=== PATIENT | male | born 1950 | race Two or more races ===

== ENCOUNTER 2017-09-22 20:56 | Inpatient (IN) | payer MEDICARE, OTHER ==
[~2017-09-22] VITALS: Ht 175.3 cm; Wt 68.5 kg
[2017-09-22] MEDS ORDERED: OMEP20CA10 PO (21:15)
[2017-09-22] MEDS ORDERED: PAXIL PO (21:15)
[2017-09-22] MEDS ORDERED: ALPR1TAB2 PO (21:15)
--- NOTE | 2017-09-22 21:45 | NUR ---
DR. AMAYA AT BEDSIDE FOR MSE.
[2017-09-22 22:28] LABS: *BILIRUBIN,URIN NEGATIVE (NEGATIVE); *BLOOD, URINE NEGATIVE (NEGATIVE); *CLARITY,URINE SLIGHTLY CLOUDY (CLEAR); *COLOR,URINE YELLOW (YELLOW); *KETONES,URINE NEGATIVE (NEGATIVE); *PROTEIN,URINE NEGATIVE (NEGATIVE); *UROBILINOGEN,URINE 0.2 E.U./dl (NORMAL); LEUKOCYTE ESTERASE ,URINE NEGATIVE (NEGATIVE); NITRITE, URINE NEGATIVE (NEGATIVE); PH,URINE 5.5 (5.0-8.0); UGLUCOSE NEGATIVE (NEGATIVE)
[2017-09-22 22:31] LABS: BACTERIA,URINE NONE SEEN /HPF (NONE SEEN); RBC,URINE 0-3 /HPF (0-3); SQUAMOUS EPITHELIAL CELL,UR NONE SEEN /HPF (NONE SEEN)
--- NOTE | 2017-09-22 23:07 | NUR ---
Pt. admitted to [facility] , under care of Dr. LUX Belongs List completed
[2017-09-22] MEDS ORDERED: LORAZEPAM 0.5 MG TABLET PO PRN (23:45)
[2017-09-22] MEDS ORDERED: MAG HYDROX/AL HYDROX/SIMETH 30 ML LIQUID UDC PO PRN (23:45)
[2017-09-22] MEDS ORDERED: ACETAMINOPHEN 325 MG TABLET PO PRN (23:45)
[2017-09-22] MEDS ORDERED: MAGNESIUM HYDROXIDE 30 ML LIQUID UDC PO PRN (23:45)
[2017-09-23 00:59] VITALS: BP 119/85
--- NOTE | 2017-09-23 00:59 | NUR ---
Patient is a 67 yr old male admitted to [facility] under the care of Dr. Goff on a 5150 for Gra[employer] disability. Hold began 09/21/17 at 1600 hours. According to the hold patient Korey was taken into [facility] by son for a mental health evaluation. Son reported that Korey has exhibited increased paranoia and delusions. Upon admission patient admitted to having visual hallucinations that manifested after he smoked marijuana. Patient stated, "after I smoked it, something was happening to my body". Patient Korey also verbalized paranoid thoughts related to invasion of privacy through the use of his iphone six stating, "If you get a call, you don't know who you are talking to."you never know who is listening"... When asked consent for release of information patient responded by stating, somebody might be abusing me because I have an iphone 6, "It's almost like he has his finger on the trigger and that is just how I feel. Patient does not want anyone notified. Advisement and patient rights explained, and patient rights handbook given to patient. Patient oriented to the unit and educated about unit rules, verbalizes understanding. Patient states he has a hx of PTSD and is able to contract for safety. Denies feelings or intent of self harm or homicidal thoughts or intent. Patient reports he has been on Paxil for approx. four months and Xanax for anxiety. Patient reported back pain however when asked what he takes for pain he stated he is afraid to take Tylenol because he wants to be able to donate platelets to cancer patients. Patient states he lives by himself and would like to return to his previous living arrangement. 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 Dr. Ram funeral location manager conveyor line bakery worker notified and aware of admission, meds to be reconciled. Pt. reports a hx of torn left rotator cuff repair. Gallbladder removal, hx of Barrets disease. Belongings and contraband inventoried and placed in unit locker.
[2017-09-23] MEDS ORDERED: TEMAZEPAM 7.5 MG CAPSULE ONE (01:05)
[2017-09-23] MEDS ORDERED: TEMAZEPAM 7.5 MG CAPSULE PO PRN (02:00)
[2017-09-23 07:30] VITALS: BP 121/92
--- NOTE | 2017-09-23 07:30 | NUR ---
ON BED, RESTING. NO DISTRESS NOTED.
--- NOTE | 2017-09-23 08:30 | NUR ---
HAVING BREAKFAST WITH ONE OF THE PATIENT. SEEMED TO BE ENJOYING HIS COMPANY. APPETITE GOOD.
--- NOTE | 2017-09-23 09:30 | NUR ---
SON , [place] CALLED. CONCERN ABOUT PATIENT STATUS. MADE AWARE TO BE UPDATED BY MACHINE WHITENER. APPPRECIATIVE OF CARE
[2017-09-23] MEDS ORDERED: PNEUMOCOCCAL 23-VAL P-SAC VAC 0.5 ML VIAL IM ONE (10:00)
--- NOTE | 2017-09-23 10:23 | NUR ---
PATIENT NOT SURE IF HE HAD PNEUMONIA VACCINE THIS YEAR, WILL CONTACT KATRINA CHARLES [phone] AGAIN.
--- NOTE | 2017-09-23 11:01 | NUR ---
pneumonia vaccine agreed to take and given as ordered.
--- NOTE | 2017-09-23 12:00 | NUR ---
seen by dr kang with psych med orders , discussed with patient , signed consent. hesitant stated, " I will sign this, see how meds will work for me." emotional support provided, encouraged.
[2017-09-23 15:24] VITALS: BP 120/79
[2017-09-23] MEDS ORDERED: ALPRAZOLAM 0.25 MG TABLET PO PRN (15:30)
--- NOTE | 2017-09-23 15:30 | NUR ---
called [facility] for home meds of patient, faxed and meds reconciled in computer. patient cooperative and aware of med intakes.
[2017-09-23] MEDS ORDERED: ALPR1TAB7 PO (16:50)
[2017-09-23] MEDS ORDERED: TEST75GE TP (16:50)
[2017-09-23] MEDS ORDERED: OMEP40CA37 PO (16:50)
[2017-09-23] MEDS ORDERED: PARO10TA86 PO (16:50)
--- NOTE | 2017-09-23 18:30 | NUR ---
cooperative, no outburst noted. good appetite.
[2017-09-23 20:16] VITALS: BP 109/70
[2017-09-23] MEDS ORDERED: BISACODYL 5 MG TABLET.DR PO PRN (20:30)
[2017-09-23] MEDS ORDERED: DOCUSATE SODIUM 100 MG CAPSULE PO ONE (20:53)
[2017-09-23] MEDS: DOCUSATE SODIUM 100 MG CAPSULE PO SCH (20:54)
[2017-09-23] MEDS: PAROXETINE HCL 20 MG TABLET PO SCH (20:54)
[2017-09-23] MEDS: OLANZAPINE 2.5 MG TABLET PO SCH (21:03)
[2017-09-23] MEDS ORDERED: BISACODYL 10 MG SUPP.RECT RC PRN ×2 (21:15→23:00)
[2017-09-24 07:30] VITALS: BP 129/88
[2017-09-24 08:32] LABS: BASOPHILS % (AUTO) 0.7 % (0.0-2.0); EOSINOPHILS # (AUTO) 0.1 K/uL (0.0-0.7); EOSINOPHILS % (AUTO) 1.4 % (0.0-7.0); HEMOGLOBIN 14.6 g/dL (12.5-16.3); LYMPHOCYTES # (AUTO) 1.4 K/uL (20.0-40.0); MEAN CORPUSCULAR HEMOGLOBIN 31.6 uug (23.8-33.4); MEAN CORPUSCULAR HGB CONC 35 g/dL (32.5-36.3); MONOCYTES # (AUTO) 0.6 K/uL (2.0-10.0); MONOCYTES % (AUTO) 8.2 % (0.0-11.0); NEUTROPHILS # (AUTO) 4.7 K/uL (1.8-8.9); NEUTROPHILS % (AUTO) 68.7 % (38.5-71.5); PLATELET COUNT (AUTO) 212 K/uL (152-348); RED BLOOD CELL COUNT(AUTO) 4.61 MIL/uL (4.06-5.63); WHITE BLOOD COUNT (AUTO) 6.9 K/uL (3.6-10.2)
[2017-09-24 09:20] LABS: BILIRUBIN,TOTAL 0.5 mg/dL (0.2-1.0); CREATININE 0.9 mg/dL (0.6-1.3); POTASSIUM 4.6 mmol/L (3.5-5.1); TOTAL PROTEIN, SERUM 6.5 g/dL (6.4-8.2)
[2017-09-24 09:34] LABS: THYROID STIMULATING HORMONE 1.389 mIU/mL (0.358-3.740)
--- NOTE | 2017-09-24 13:46 | NUR ---
UR Note: Received call from Jocelynn at [email or web address]. Auth#[id number] through 09/27 with review on that day. Industrial Relations Manager assigned is Kelsey ([phone]). SW will follow-up.
--- NOTE | 2017-09-24 15:10 | NUR ---
Firearms Report: KORY completed and submitted [employer] firearms report on 09/24/17.
[2017-09-24 17:12] VITALS: BP 126/90
[2017-09-24 20:27] VITALS: BP 123/86
[2017-09-24] MEDS: DOCUSATE SODIUM 100 MG CAPSULE PO SCH (20:37)
[2017-09-24] MEDS: PAROXETINE HCL 20 MG TABLET PO SCH (20:37)
[2017-09-24] MEDS: OLANZAPINE 2.5 MG TABLET PO SCH (20:37)
[2017-09-24] MEDS ORDERED: OLANZAPINE 2.5 MG TABLET PO ONE (21:30)
[2017-09-25 07:30] VITALS: BP 142/89
--- NOTE | 2017-09-25 11:25 | NUR ---
Initial Discharge Instructions: Pt resides at home alone [[address] [place] [address]; [phone]]. Per pt, he would like to return home upon discharge. Pt gave consent to contact his brother, Abdiel Dalton only ([phone]) at this time. SW will speak with pt, family, and MD regarding appropriate discharge plans. SW will form a safe and proper discharge.
[2017-09-25 15:40] VITALS: BP 111/70
[2017-09-25 19:51] VITALS: BP 126/87
[2017-09-25] MEDS: DOCUSATE SODIUM 100 MG CAPSULE PO SCH (20:05)
[2017-09-25] MEDS: PAROXETINE HCL 20 MG TABLET PO SCH (20:06)
[2017-09-25] MEDS ORDERED: OLANZAPINE 2.5 MG TABLET PO SCH (21:00)
[2017-09-25] MEDS ORDERED: OLANZAPINE 5 MG TABLET PO SCH (21:00)
--- NOTE | 2017-09-25 22:00 | NUR ---
received to care, watching tv with peers, pleasant upon approach. compliant with medications and staff direction. denies hearing any voices, or other symptoms. as of 2199, he appears to be asleep. no distress noted. will continue to monitor closely.
--- NOTE | 2017-09-25 22:15 | NUR ---
bedtime dose of zyprexa increased, but pt is already asleep, so pt only got 5 mg, instead or the new dose, of 7.5.
[2017-09-25] MEDS: OLANZAPINE 2.5 MG TABLET PO ONE (23:03)
[2017-09-26] MEDS: OLANZAPINE 2.5 MG TABLET PO ONE (00:47)
--- NOTE | 2017-09-26 00:47 | NUR ---
pt is now awake. additional zyprexa, 2.5 mg, ordered earlier, by Dr Goff, was given, at this time.
[2017-09-26] MEDS ORDERED: OLANZAPINE 2.5 MG TABLET ONE (00:59)
--- NOTE | 2017-09-26 06:00 | NUR ---
slept 7.0 hours, total. assisted with am care, and shower. no distress noted.
[2017-09-26 07:30] VITALS: BP 124/77
--- NOTE | 2017-09-26 14:07 | NUR ---
Log Preparer: Pt provided consent to speak with his daughter Mariana Layne. Attempted to call dtr ([phone]) to discuss discharge plans. No answer and mailbox full, so unable to leave message. SW will attempt at a later time.
[2017-09-26 16:00] VITALS: BP 122/82
[2017-09-26 20:17] VITALS: BP 124/82
[2017-09-26] MEDS: DOCUSATE SODIUM 100 MG CAPSULE PO SCH (21:05)
[2017-09-26] MEDS: PAROXETINE HCL 20 MG TABLET PO SCH (21:05)
[2017-09-26] MEDS: OLANZAPINE 5 MG TABLET PO SCH (21:08)
--- NOTE | 2017-09-26 22:00 | NUR ---
received to care, pleasant upon approach, watching tv, and interacting well, with peers. compliant with medications and staff direction. denies hearing any voices, or other symptoms. as of 2199, he appears to be falling asleep. no distress noted. will continue to monitor closely.
--- NOTE | 2017-09-26 23:47 | NUR ---
PRN restoril, given for insomnia
--- NOTE | 2017-09-27 00:30 | NUR ---
appears to be asleep. no distress noted.
--- NOTE | 2017-09-27 06:00 | NUR ---
slept 7.0 hours, total. continues to sleep. no distress noted.
[2017-09-27 07:30] VITALS: BP 109/80
--- NOTE | 2017-09-27 08:28 | NUR ---
UR Note: Pt Auth#[id number] through 09/27. Clinical review due today (09/27). Provided pt clinicals over the phone to HERNANDO Cole ([phone]). Awaiting further authorization. SW will follow-up.
--- NOTE | 2017-09-27 08:36 | NUR ---
SW attempted to call pt's dtr, Mariana Layne, to discuss treatment plans ([phone]). No answer, voicemail box full, so this television writer was unable to leave a message. SW will attempt at a later time.
[2017-09-27 16:00] VITALS: BP 116/73
--- NOTE | 2017-09-27 17:00 | NUR ---
Gps/Tape Making Machine Operator- Per Biogeographer patient will be discharge tomorrow to home, son to knot picker cloth patient.
--- NOTE | 2017-09-27 18:00 | NUR ---
Gps/Silk Spooler- Attended group therapy, had been interacting with his selected peers. Cooperative ,pleasant attending group therapy.Discharged planning for tomorrow per [employer] Marker.
[2017-09-27] MEDS: PAROXETINE HCL 20 MG TABLET PO SCH (20:44)
[2017-09-27] MEDS: OLANZAPINE 5 MG TABLET PO SCH (20:44)
[2017-09-27] MEDS: DOCUSATE SODIUM 100 MG CAPSULE PO SCH (20:44)
[2017-09-27 21:22] VITALS: BP 121/82
--- NOTE | 2017-09-27 22:00 | NUR ---
received to care, watching tv, pleasant, and interacting well, with peers. compliant with medications and staff direction. denies hearing any voices, or other symptoms. as of 2199, he appears to be asleep. no distress noted. will continue to monitor closely.
--- NOTE | 2017-09-28 06:00 | NUR ---
slept 7.0 hours.
[2017-09-28 07:30] VITALS: BP 136/93
--- NOTE | 2017-09-28 08:48 | NUR ---
UR Note: On 09/27 at 1530, received call from pt's [employer] Associate Kelsey ([phone]) who was unable to continue authorization for the pt without [id number] review. The inspector automatic typewriter informed Dr. Goff, and she decided pt was acceptable to DC. On 09/28 at 0815, spoke with Christy at [employer] ([phone]) and requested a cancellation of [id number] review. This inspector automatic typewriter then called HERNANDO Cole ([phone]) to request outpatient psychiatrist referrals for the patient. Awaiting return call. SW will follow-up.
--- NOTE | 2017-09-28 12:07 | NUR ---
DC Note: Pt will be discharged home with his girlfriend Balbina and will stay at [facility] [address] in [place], [place] [[address], [place] [address]; ] via private transportation at 1pm. Spoke with pts girlfriend, Balbina ([phone]) who is willing to provide transportation and is aware and agreeable with discharge plans. Pt is aware and agreeable with discharge plans. Pt will follow-up with Dr. Manish Ram ) (PCP). Pt was also provided with list of referrals from [facility] for outpatient psychiatric treatment. The list included: [facility] ; Dr. Ashley Luciano ( ); Alberta Maurice, Master Level Clinician ; and Diamond Avila, Master Level Clinician ( ).
--- NOTE | 2017-09-28 12:41 | NUR ---
Gps/Motel Maid- Discharge planning in progress, per Korey, patient will be picked up by his girlfriend at around 1300 today. Reviewed prescriptions as per Cayla Abad PA also came in saw patient patient verbalized understanding. All belongings given to patient.Patient in good spirit, no complaints offered.
--- NOTE | 2017-09-28 14:15 | NUR ---
Gps/Custom Bike Builder- Discharged to home via private car accompanied by his girlfriend Balbina.Patient was in good spirit, no complaints noted. all belongings given back to patient.
[2017-09-28] MEDS ORDERED: OLANZAPINE 5 MG TABLET PO SCH (21:00)
== END 2017-09-28 14:15 | disposition home or self-care (01) | DRG 885 ==
LOC: ER 21:06 → GPS 22:52
PROVIDERS: ADMIT Psychiatry & Neurology Psychosomatic Medicine; ATTEND Internal Medicine
DX: F31.9 Bipolar disorder, unspecified (principal); E78.5 Hyperlipidemia, unspecified; Z87.891 Personal history of nicotine dependence; Z90.49 Acquired absence of other specified parts of digestive tract; F43.10 Post-traumatic stress disorder, unspecified; K59.00 Constipation, unspecified; R63.4 Abnormal weight loss; Z68.22 Body mass index [BMI] 22.0-22.9, adult; M79.671 Pain in right foot
CPT/HCPCS: 36415; 71010; 73630; 83735; 84100; 84443; 85025; 90732; 93005; A4663